=== PATIENT | female | born 1995 | race Caucasian/White ===

== ENCOUNTER 2021-02-28 09:32 | Emergency (ER) | payer BC, OTHER ==
[~2021-02-28] VITALS: Ht 177.8 cm; Wt 142.7 kg
[2021-02-28 09:34] VITALS: BP 153/83
[2021-02-28] MEDS ORDERED: VENL150C43 PO (09:47)
[2021-02-28] MEDS ORDERED: ATEN25TA PO (09:47)
[2021-02-28] MEDS ORDERED: GNPTAB35 PO (09:47)
[2021-02-28] MEDS ORDERED: VITA500T41 PO (09:47)
[2021-02-28] MEDS ORDERED: LAMI25TA PO (09:47)
[2021-02-28] MEDS ORDERED: TRAZ-252 PO (09:47)
[2021-02-28] MEDS ORDERED: ACET-683 PO (09:47)
[2021-02-28] MEDS ORDERED: RISP3TAB20 PO (09:47)
[2021-02-28 10:54] LABS: HEMATOCRIT 39.4 % (36.0-47.0); HEMOGLOBIN 13.4 g/dl (12.0-15.5); MEAN CORPUSCULAR HEMOGLOBIN 29.6 pg (27.0-33.0); PLATELET COUNT, AUTOMATED 218 10^3/uL (150-450); RED BLOOD COUNT 4.53 10^6/uL (4.00-5.40); WHITE BLOOD COUNT 8.1 10^3/uL (4.0-10.0)
[2021-02-28 11:23] LABS: HCG, SERUM QUALITATIVE NEGATIVE (NEGATIVE)
[2021-02-28 11:38] LABS: ALBUMIN 3.8 GM/DL (3.2-5.2); ALT/SGPT 40 U/L (12-78); BILIRUBIN,DIRECT < 0.1 MG/DL (0.0-0.2); BILIRUBIN,TOTAL 0.2 MG/DL (0.2-1.0); BLOOD UREA NITROGEN 19 MG/DL (7-18); CALCIUM LEVEL 8.9 MG/DL (8.5-10.1); CARBON DIOXIDE LEVEL 26 MEQ/L (21-32); CHLORIDE LEVEL 108 MEQ/L (98-107); CREATININE FOR GFR 0.79 MG/DL (0.55-1.30); ETHYL ALCOHOL (ETHANOL) < 0.003 % (0.000-0.010); GLOMERULAR FILTRATION RATE > 60.0 (>60); GLUCOSE, FASTING 102 MG/DL (70-100); POTASSIUM SERUM 4.3 MEQ/L (3.5-5.1); SALICYLATE LEVEL < 1.7 MG/DL (5.0-30.0); SODIUM LEVEL 139 MEQ/L (136-145); THYROID STIMULATING HORMONE 0.644 uIU/ML (0.358-3.740)
[2021-02-28 11:56] LABS: AMPHETAMINES LEVEL URINE NEGATIVE (NEGATIVE); BARBITURATES URINE NEGATIVE (NEGATIVE); BENZODIAZEPINES URINE NEGATIVE (NEGATIVE); CANNABINOIDS URINE POSITIVE (NEGATIVE); COCAINE METABOLITE URINE NEGATIVE (NEGATIVE); METHADONE URINE NEGATIVE (NEGATIVE); OPIATES URINE NEGATIVE (NEGATIVE); PHENCYCLIDINE URINE NEGATIVE (NEGATIVE)
[2021-02-28] MEDS ORDERED: ACETAMINOPHEN TAB 650MG DOSE (2X325MG) PO ONE (12:30)
== END 2021-02-28 16:05 | disposition home or self-care (01) ==
LOC: M ED 09:32
DX: F31.9 Bipolar disorder, unspecified (principal); E66.9 Obesity, unspecified; M54.9 Dorsalgia, unspecified; F64.0 Transsexualism